=== PATIENT | female | born 1975 | race Caucasian/White ===

== ENCOUNTER → 2021-07-31 | Outpatient (CLI) | payer BC ==
[~2021-07-31] MED LIST: IBUPROFEN600 MG PO
== END ==
LOC: KOH-I 13:38
DX: M54.2 Cervicalgia (principal)
CPT/HCPCS: 72040

== ENCOUNTER 2021-12-02 00:42 | Inpatient (IN) | payer BC ==
[~2021-12-02] VITALS: Ht 170.2 cm; Wt 108.8 kg
[2021-12-02 01:30] LABS: HEMOGLOBIN 13.9 gm/dl (12.3-15.3); RED BLOOD COUNT 4.48 M/UL (4.00-5.10); WHITE BLOOD COUNT 18.6 K/UL (4.5-11.0)
[2021-12-02 02:16] LABS: BUN/CREATININE RATIO 17 (0-10)
[2021-12-02] MEDS ORDERED: NEURONTIN600 MG PO (09:44)
[2021-12-02] MEDS ORDERED: QUETIAPINE FUMA25 MG PO (09:44)
[2021-12-02] MEDS ORDERED: FLUOXETINE HCL40 MG PO (09:45)
[2021-12-02] MEDS ORDERED: HYDROCODON-ACE1 EAC4 PO (09:45)
[2021-12-03 03:25] LABS: WHITE BLOOD COUNT 17.1 K/UL (4.5-11.0)
[2021-12-03 03:53] LABS: RED BLOOD COUNT 3.95 M/UL (4.00-5.10)
[2021-12-03 04:19] LABS: BUN/CREATININE RATIO 23 (0-10)
[2021-12-03 07:12] LABS: COMPLEMENT C3, SERUM 149 mg/dL (82-167); COMPLEMENT C4, SERUM 20 mg/dL (12-38); RHEUMATOID ARTHRITIS FACTOR 15.7 IU/mL (<14.0)
[2021-12-03 09:34] LABS: BORDETELLA PARAPERTUSSIS Not Detected (Not Detectd); BORDETELLA PERTUSSIS Not Detected (Not Detectd); CHLAMYDIA PNEUMONIAE Not Detected (Not Detectd); CORONAVIRUS HKU1 Not Detected (Not Detectd); CORONAVIRUS NL63 Not Detected (Not Detectd); CORONAVIRUS OC43 Not Detected (Not Detectd); CORONOAVIRUS 229E Not Detected (Not Detectd); HUMAN METAPNEUMOVIRUS Not Detected (Not Detectd); HUMAN RHINOVIRUS/ENTEROVIRUS Not Detected (Not Detectd); INFLUENZA A Not Detected (Not Detectd); INFLUENZA B Not Detected (Not Detectd); MYCOPLASMA PNEUMONIAE Not Detected (Not Detectd); PARAINFLUENZA VIRUS 1 Not Detected (Not Detectd); PARAINFLUENZA VIRUS 2 Not Detected (Not Detectd); PARAINFLUENZA VIRUS 3 Not Detected (Not Detectd); PARAINFLUENZA VIRUS 4 Not Detected (Not Detectd); RESPIRATORY SYNCYTIAL VIRUS Not Detected (Not Detectd)
[2021-12-03 12:42] LABS: SARS-CoV-2 NOT DETECTED (Not Detectd)
[2021-12-03 14:12] LABS: ANTI-DSDNA ANTIBODIES <1 IU/mL (0-9); ANTICHROMATIN ANTIBODIES <0.2 AI (0.0-0.9)
[2021-12-05 11:17] LABS: QUANTIFERON MITOGEN VALUE 0.05 IU/mL (.); QUANTIFERON NIL VALUE 0.01 IU/mL (.); QUANTIFERON TB1 AG VALUE 0.01 IU/mL (.); QUANTIFERON TB2 AG VALUE 0.01 IU/mL (.); QUANTIFERON-TB GOLD PLUS Indeterminate (Negative)
[2021-12-05 14:13] LABS: ANTIMYELOPEROXIDASE (MPO) ABS <9.0 U/mL (0.0-9.0); ANTIPROTEINASE 3 (PR-3) ABS <3.5 U/mL (0.0-3.5); CYTOPLASMIC (C-ANCA) <1:20 titer (Neg:<1:20); PERINUCLEAR (P-ANCA) <1:20 titer (Neg:<1:20)
[2021-12-05 22:07] LABS: HISTOPLASMA MYCELIAL CF AB. Negative (Neg:<1:2); HISTOPLASMA MYCELIAL ID AB. Negative (Negative)
[2021-12-06 02:58] LABS: HEMOGLOBIN 12.2 gm/dl (12.3-15.3); RED BLOOD COUNT 4.03 M/UL (4.00-5.10)
[2021-12-06 03:01] LABS: WHITE BLOOD COUNT 10.7 K/UL (4.5-11.0)
[2021-12-06 03:29] LABS: BUN/CREATININE RATIO 31 (0-10)
--- NOTE | 2021-12-06 09:15 | NUR ---
PT WALKED WITHOUT HER OXYGEN DOWN LINARES TO ASSESS 02. SHE DROPPED TO 85% ON ROOM AIR. NOTIFIED DR PALMER.
[2021-12-06] MEDS ORDERED: PREDNISONE 10 M10 MG PO (10:05)
[2021-12-06] MEDS ORDERED: IPRAT-ALBUT 0.5-3 ML INH (10:05)
[2021-12-06] MEDS ORDERED: AUGMENTIN 500-1 EACH PO (10:05)
== END 2021-12-06 11:04 | disposition home or self-care (01) | DRG 871 ==
LOC: ER1 00:42 → CDU 04:10 → MED SURG 4 04:10 → PROG CARE 04:10 → MED SURG 4 16:34 → PROG CARE 12-03 15:40
PROVIDERS: Family Medicine; Internal Medicine; Internal Medicine Pulmonary Disease; ADMIT Internal Medicine
PROC: 3E03329 Introduction of Other Anti-infective into Peripheral Vein, Percutaneous Approach (ICD-10-PCS; principal; 2021-12-02)
PROC: B24BZZZ Ultrasonography of Heart with Aorta (ICD-10-PCS; 2021-12-03)
PROC: 5A0945A Assistance with Respiratory Ventilation, 24-96 Consecutive Hours, High Flow/Velocity Cannula (ICD-10-PCS; 2021-12-03)
DX: A41.9 Sepsis, unspecified organism (principal); J18.9 Pneumonia, unspecified organism; J80 Acute respiratory distress syndrome; J84.9 Interstitial pulmonary disease, unspecified; J44.1 Chronic obstructive pulmonary disease with (acute) exacerbation; J44.0 Chronic obstructive pulmonary disease with (acute) lower respiratory infection; E87.3 Alkalosis; R65.20 Severe sepsis without septic shock; I27.20 Pulmonary hypertension, unspecified; R59.1 Generalized enlarged lymph nodes; G47.33 Obstructive sleep apnea (adult) (pediatric); Z20.822 Contact with and (suspected) exposure to COVID-19; F17.200 Nicotine dependence, unspecified, uncomplicated; D35.02 Benign neoplasm of left adrenal gland; Z99.81 Dependence on supplemental oxygen; Z90.710 Acquired absence of both cervix and uterus; Z98.890 Other specified postprocedural states; Z83.6 Family history of other diseases of the respiratory system; Z71.6 Tobacco abuse counseling
CPT/HCPCS: ECHO; 0240U; 36415; 36600; 71045; 71046; 80048; 80053; 80202; 81001; 82550; 82553; 82803; 83520; 83605; 83880; 84484; 85025; 85379; 85610; 86038; 86140; 86160; 86225; 86256; 86431; 86612; 86698; 87015; 87040; 87070; 87081; 87116; 87205; 87633; 93005; 93306; 94640; 94664; 94760; 96374; 96375; 96376; 99285; J0456; J0696; J1650; J1885; J1940; J2405; J2543; J2920; J2930; J3370; J7030; J7070; Q9967

== ENCOUNTER → 2022-01-08 | Outpatient (CLI) | payer BC ==
[~2022-01-08] MED LIST changes: +AUGMENTIN 500-1 EACH PO; +FLUOXETINE HCL40 MG PO; +HYDROCODON-ACE1 EAC4 PO; +IPRAT-ALBUT 0.5-3 ML INH; +NEURONTIN600 MG PO; +PREDNISONE 10 M10 MG PO; +QUETIAPINE FUMA25 MG PO
== END ==
LOC: KOH-I 12:57
DX: R59.0 Localized enlarged lymph nodes (principal); R06.02 Shortness of breath
CPT/HCPCS: 71250

== ENCOUNTER → 2022-01-12 | Outpatient (CLI) | payer BC | LOC: HEART 5 13:19 | DX: R06.02 Shortness of breath (principal) | CPT/HCPCS: 94010; 94729 ==